=== PATIENT | female | born 1975 | race Caucasian/White ===

== ENCOUNTER 2016-10-09 14:13 | Emergency (ER) | payer OTHER ==
[~2016-10-09] VITALS: Ht 167.6 cm; Wt 64.1 kg
[2016-10-09 14:17] VITALS: BP 110/73; PULSE 110; RESP 18; TEMP 98.6; O2SAT 99
[2016-10-09] MEDS ORDERED: RESP: ALBUTEROL 2.5 MG/3 ML NEB (SCH) INH ONE (14:45)
--- NOTE | 2016-10-09 14:55 | PD ---
HPI Chief Complaint: Cold / Flu Symptoms Time Seen by Provider: 14:52 Travel History International Travel<30 days: No Contact w/Intl Traveler<30days: No Traveled to known affect area: No History of Present Illness HPI 41-year-old female that presents to the ED for evaluation of cold like symptoms that she's had for almost 2 months now. [place] Per patient she came here for next 4 days to see maybe ModusPeze help her symptoms. Per patient she's been having a lot of sinus congestion and ear pain. Per patient she has really bad cough the Source to Be Short of Breath As Well As Causes Her to Cough Some Blood Sometimes. She States Is Having Some Chest Discomfort. Some Abdominal Aches from the Coughing. She denies any history of smoking, asthma, COPD. She has no allergies to medication. Per patient she was put on Cipro 2 weeks before coming as well as she currently takes inhalers with minimal relief of her symptoms. She has no allergies to medication. She does have a history of diabetes with insulin-dependent. She did travel recently by car through here and states that her symptoms seem to have been worsening for the past couple days. She's been taking oqpz-uah-sefvmmm remedies with minimal relief. She states that now she was admitted for 6 days in the hospital and they diagnosed with bronchitis. PFSH Past Medical History Hx Anticoagulant Therapy: No Diabetes: Yes ?: Not Social History Alcohol Use: No Tobacco Use: No Substance Use: No Allergies-Medications (Allergen,Severity, Reaction): Coded Allergies: No Known Allergies (Unverified , 10/09/16) Reported Meds & Prescriptions Reported Meds & Active Scripts Active Reported [insulin pump] 1 SQ DIRECTED Miralax Powder (Polyethylene Glycol 3350 Powder) 17 Gm Powd 17 Gm PO DAILY Mix and dissolve one measuring cap-ful (17 grams) in water or juice. Linzess (Linaclotide) 145 Mcg Cap 145 Mcg PO DAILY Review of Systems Except as stated in HPI: all other systems reviewed are Neg Physical Exam Narrative GENERAL: Well-nourished, well-developed patient in no apparent distress. SKIN: Warm and dry. HEAD: Atraumatic. Normocephalic. EYES: Pupils equal and round reactive to light and accommodation. No scleral icterus. No injection or drainage. ENT: No nasal bleeding or discharge. Mucous membranes pink and moist. TMs are clear with no sign of infection or perforation. No mastoid tenderness. Ear canals are intact bilaterally. No lymphadenopathy. Nostril mucosa is red and moist with clear mucus noted. No sinus tenderness to palpation noted. Tonsils are not enlarged or swollen. No ulvua Deviation. Tongue is midline. NECK: Trachea midline. No JVD. No meningeal signs noted CARDIOVASCULAR: Regular rate and rhythm. RESPIRATORY: No accessory muscle use. Mild expiratory wheezing heard in all lung harry. Breath sounds equal bilaterally. Data Data Last Documented VS Vital Signs Date Time Temp Pulse Resp B/P Pulse Ox O2 Delivery O2 Flow Rate FiO2 10/09/16 15:03 99 Room Air 10/09/16 14:17 98.6 110 18 110/73 Orders Complete Blood Count With Diff (10/09/16 14:31) Basic Metabolic Panel (Bmp) (10/09/16 14:31) Magnesium (Mg) (10/09/16 14:31) Group A Rapid Strep Screen (10/09/16 14:31) Influenzae A/B Antigen (10/09/16 14:31) Chest, Single Ap (10/09/16 14:31) Iv Access Insert/Monitor (10/09/16 14:31) Ed Urine Pregnancytest Poc (10/09/16 14:31) Albuterol Neb (Albuterol Neb) (10/09/16 14:45) Ct Pulmonary Angiogram (10/09/16 14:46) Strep Culture (Group A) (10/09/16 14:55) Iohexol 350 Inj (Omnipaque 350 Inj) (10/09/16 15:57) Labs Laboratory Tests Test 10/09/16 14:55 White Blood Count 7.8 TH/MM3 Red Blood Count 3.58 MIL/MM3 Hemoglobin 10.4 GM/DL Hematocrit 31.4 % Mean Corpuscular Volume 87.9 FL Mean Corpuscular Hemoglobin 29.2 PG Mean Corpuscular Hemoglobin 33.2 % Concent Red Cell Distribution Width 11.5 % Platelet Count 418 TH/MM3 Mean Platelet Volume 6.9 FL Neutrophils (%) (Auto) 72.8 % Lymphocytes (%) (Auto) 17.1 % Monocytes (%) (Auto) 8.2 % Eosinophils (%) (Auto) 0.8 % Basophils (%) (Auto) 1.1 % Neutrophils # (Auto) 5.7 TH/MM3 Lymphocytes # (Auto) 1.3 TH/MM3 Monocytes # (Auto) 0.6 TH/MM3 Eosinophils # (Auto) 0.1 TH/MM3 Basophils # (Auto) 0.1 TH/MM3 CBC Comment DIFF FINAL Differential Comment Sodium Level 130 MEQ/L Potassium Level 4.3 MEQ/L Chloride Level 92 MEQ/L Carbon Dioxide Level 29.7 MEQ/L Anion Gap 8 MEQ/L Blood Urea Nitrogen 8 MG/DL Creatinine 0.66 MG/DL Estimat Glomerular Filtration 98 ML/MIN Rate Random Glucose 205 MG/DL Calcium Level 8.5 MG/DL Magnesium Level 2.0 MG/DL MDM Medical Decision Making Medical Screen Exam Complete: Yes Emergency Medical Condition: Yes Medical Record Reviewed: Yes Interpretation(s) Last Impressions Chest X-Ray 10/09/16 1431 Signed Impressions: Service Date/Time: Friday, October 09, 2016 14:40 - CONCLUSION: Abnormal right infrahilar region, inflammatory versus neoplastic process. CT scan with contrast is suggested. Gerhard Davila MD FACR CBC & BMP Diagram 10/09/16 14:55 CT showed consolidation on the right and left heel her area possible sarcoidosis versus malignancy Differential Diagnosis Bronchitis versus sinusitis versus pneumonia versus reactive airway disease versus PE versus influenza versus viral illness Narrative Course 41-year-old female that presents to the ED for evaluation of cold-like symptoms. Patient was properly examined and was found to have signs and symptoms consistent with appears to be possible bronchitis versus reactive airway disease. Patient states having hematemesis as well as she is tachycardic. Recent travel. Fortunately I cannot rule out PE because of this. Recommend pulmonary and grandma labs. Patient agreeable with this. Patient was given breathing treatment here in the ED. Labs and imaging showed what appears to be consolidation. Cannot rule out malignancy first CT report. More likely sarcoidosis. At this time I will treat patient with Levaquin. Case was discussed in my attending Dr. Taylor who agrees with plan. Patient was told to continue using inhalers and nebulizer as prescribed by her portable trackman. Patient was also started on prednisone. At this time I will start patient also on hydrocodone cough syrup to help with her main symptom which is the cough. I strongly recommend that she follows up with portable trackman to get bronchoscopy and she understands this. See ED for worsening symptoms. Diagnosis Primary Impression: Lung consolidation Patient Instructions: General Instructions Additional Instructions: Motrin and Tylenol for pain and fever. You can use udqj-upe-hwoakwi antihistamine as well as well as Mucinex as needed for runny nose and congestion. Cough drops for cough as needed. Drink plenty of fluids. Follow-up with PCP. See ED for worsening symptoms. Med/Other Pt SpecificInfo: Prescription(s) given Scripts Hydrocodone-Homatropine Liq 5-1.5 Mg/5 Ml Syrp5 Ml PO Q6H PRN (COUGH) #120 ML Ref 0 Prov:Rashard Taylor MD 10/09/16 Prednisone 20 Mg Tab20 Mg PO BID #10 TAB Prov:Rashard Taylor MD 10/09/16 Levofloxacin (Levaquin)750 Mg Psj288 Mg PO DAILY 7 Days Ref 0 Prov:Rashard Taylor MD 10/09/16 Disposition: 01 DISCHARGE HOME Condition: Stable [place] Can Oct 09, 2016 14:55
[2016-10-09] MEDS ORDERED: LINA145C PO (15:03)
[2016-10-09] MEDS ORDERED: MIRA33504 PO (15:03)
[2016-10-09] MEDS ORDERED: insulin pump SQ (15:03)
[2016-10-09 15:05] LABS: AUTOMATED NEUTROPHIL # 5.7 TH/MM3 (1.8-7.7); BASOPHIL # 0.1 TH/MM3 (0-0.2); BASOPHIL % 1.1 % (0.0-2.0); EOSINOPHIL # 0.1 TH/MM3 (0-0.4); EOSINOPHIL % 0.8 % (0.0-4.0); HEMATOCRIT 31.4 % (35.0-46.0); HEMO FLAGS DIFF FINAL; LYMPH % 17.1 % (9.0-44.0); LYMPHOCYTE # 1.3 TH/MM3 (1.0-4.8); MEAN CELL VOLUME 87.9 FL (80.0-100.0); MEAN CORPUSCULAR HEMOGLOBIN 29.2 PG (27.0-34.0); MEAN CORPUSCULAR HGB CONC 33.2 % (32.0-36.0); MONO % 8.2 % (0.0-8.0); NEUT % 72.8 % (16.0-70.0); PLATELET COUNT 418 TH/MM3 (150-450); RED BLOOD COUNT 3.58 MIL/MM3 (4.00-5.30); RED CELL DISTRIBUTION WIDTH 11.5 % (11.6-17.2); WHITE BLOOD COUNT 7.8 TH/MM3 (4.0-11.0)
--- NOTE | 2016-10-09 15:09 | RADHPO ---
EXAM DATE/TIME: 10/09/2016 14:40 [facility] COMPARISON: No previous studies available for comparison. INDICATIONS : Coughing blood. MEDICAL HISTORY : Diabetes mellitus type I. SURGICAL HISTORY : None. ENCOUNTER: Initial ACUITY: 2 months PAIN SCORE: 4/10 LOCATION: Bilateral chest FINDINGS: The study is abnormal with infrahilar consolidative changes on the right. The left lung is clear. Th e heart and pulmonary vascularity are normal. The portion of the bony skeleton visualized is unremark able. CONCLUSION: Abnormal right infrahilar region, inflammatory versus neoplastic process. CT scan with contrast is s uggested. Gerhard Davila MD FACR on October 09, 2016 at 15:07 Board Certified Radiologist. This report was verified electronically.
[2016-10-09 15:14] LABS: POTASSIUM 4.3 MEQ/L (3.5-5.1)
[2016-10-09 15:15] LABS: BICARBONATE 29.7 MEQ/L (21.0-32.0)
[2016-10-09] MEDS ORDERED: IOHEXOL 350 MG/ML 10 ML VIAL (for RAD DIAG) IV ONE (15:57)
--- NOTE | 2016-10-09 16:20 | RADHPO ---
EXAM DATE/TIME: 10/09/2016 15:43 [facility] COMPARISON: No previous studies available for comparison. INDICATIONS : Shortness of breath and cough for two months. IV CONTRAST: 60 cc Omnipaque 350 (iohexol) IV RADIATION DOSE: 8.93 CTDIvol (mGy) MEDICAL HISTORY : Diabetes mellitus type 2. SURGICAL HISTORY : None. ENCOUNTER: Initial ACUITY: 2 months PAIN SCALE: 0/10 LOCATION: chest TECHNIQUE: Volumetric scanning of the chest was performed using a pulmonary embolism protocol MIP images were re constructed. Using automated exposure control and adjustment of the mA and/or kV according to patien t size, radiation dose was kept as low as reasonably achievable to obtain optimal diagnostic quality images. FINDINGS: The examination is of good diagnostic quality. No pulmonary embolus is identified. The heart is normal in size. The exam does demonstrate adenopathy in both negro and subcarinal ming c aspen. There are old, calcified subcarinal and left hilar nodes as well. Examination of the pulmonary parenchyma demonstrates dense consolidation involving the perihilar pare nchyma bilaterally. This is more significant on the right than the left. There is significant narrowi ng of the bronchus to the right middle lobe. The remainder of the parenchyma is relatively clear. The re is no pleural effusion. There is no pleural effusion. The visualized portions of upper abdomen are unremarkable. CONCLUSION: 1. There is dense perihilar consolidation and bilateral hilar adenopathy with narrowing of the bronch us to the right middle lobe. Primary consideration would be sarcoidosis. Malignancy is not definitive ly excluded. Pulmonary consult and bronchoscopy would be of benefit. 2. No pulmonary embolus identified. Deepak Davila MD on October 09, 2016 at 16:01 Board Certified Radiologist. This report was verified electronically.
[2016-10-09] MEDS ORDERED: HYDR5SYP10 PO (16:44)
[2016-10-09] MEDS ORDERED: LEVA750T PO (16:44)
[2016-10-09] MEDS ORDERED: PRED20 PO (16:44)
[2016-10-09 16:47] VITALS: BP 96/64
== END 2016-10-09 16:55 | disposition home or self-care (01) ==
LOC: PHEFT 14:13
DX: J18.1 Lobar pneumonia, unspecified organism (principal); E11.9 Type 2 diabetes mellitus without complications; Z79.4 Long term (current) use of insulin; R06.02 Shortness of breath
CPT/HCPCS: 71010; 71275; 80048; 83735; 84703; 85025; 87081; 87804; 87880; 94664; 99285; J7613; Q9967